=== PATIENT | male | born 1995 | race Caucasian/White ===

== ENCOUNTER 2025-09-12 15:51 | Outpatient (CLI) | payer BC ==
[2025-09-12 16:24] LABS: #Basophils 0.04 10x3/uL (0.0-0.2); #Eosinophils 0.18 10x3/uL (0.0-0.7); #Monocytes 0.49 10x3/uL (0.11-0.59); #Neutrophils 3.09 10x3/uL (1.40-6.50); %Basophils 0.6 % (0.0-1.0); %Eosinophils 2.9 % (0.0-10.0); %Lymphocytes 38.3 % (21.0-51.0); %Monocytes 7.9 % (0.0-10.0); %Neutrophils 50.0 % (42.0-75.0); Hematocrit 45.2 % (42.0-52.0); Hemoglobin 15.5 g/dL (14.0-18.0); Mean Corpuscular Hemoglobin 28.5 pg (27.0-31.0); Mean Corpuscular Volume 83.1 fL (78.0-98.0); Platelet Count 232 10x3/uL (130-400); Red Blood Cell (RBC) Count 5.44 mill/uL (4.70-6.10); White Blood Cell (WBC) Count 6.19 10x3/uL (4.8-10.8)
== END 2025-09-12 15:52 | disposition home or self-care (01) ==
LOC: LABBT 15:51
PROVIDERS: ATTEND Orthopaedic Surgery
DX: Z01.812 Encounter for preprocedural laboratory examination (principal); S66.822A Laceration of other specified muscles, fascia and tendons at wrist and hand level, left hand, initial encounter
CPT/HCPCS: 85025

== ENCOUNTER 2025-09-16 06:06 | Day surgery (SDC) | payer BC ==
[2025-09-12 15:59] VITALS: BMI 30.4
[2025-09-16] MEDS ORDERED: CEFAZOLIN 2 GM VIAL ONE (07:59)
[2025-09-16] MEDS ORDERED: Bacitracin Zinc Ointment 30 gm TUBE ONE (08:05)
[2025-09-16] MEDS ORDERED: Lidocaine 1% PF 5 ML VIAL ONE (08:15)
[2025-09-16] MEDS ORDERED: PROPOFOL 20 ML ONE (08:15)
[2025-09-16] MEDS ORDERED: Ondansetron PF 4 MG/2 ML Vial ONE (08:33)
[2025-09-16] MEDS ORDERED: PHENYLEPHRINE-NS 100 MCG/ML 10 ML SYRINGE ONE (09:49)
== END 2025-09-16 12:53 | disposition home or self-care (01) ==
LOC: SDC 06:06
PROVIDERS: ATTEND Orthopaedic Surgery
PROC: 0LQ80ZZ Repair Left Hand Tendon, Open Approach (ICD-10-PCS; principal; 2025-09-16)
DX: S61.012A Laceration without foreign body of left thumb without damage to nail, initial encounter (principal); W26.0XXA Contact with knife, initial encounter
CPT/HCPCS: A6223; J0665; J1100; J2405; J2704; J3010; J3490